=== PATIENT | male | born 1940 | race Caucasian/White ===

== ENCOUNTER → 2016-06-05 13:33 | Outpatient (CLI) | payer MEDICARE, BC ==
[2013-05-19 10:08] VITALS: BMI 27.3
[~2016-06-05 13:33] MED LIST: AMITIZA24 MCG PO; CO Q-10100 MG PO; CRESTOR10 MG PO; FISH OIL 1,0001 CA1 PO; GARLIC1 CAP PO; K-DUR20 MEQ PO; MIRALAX17 GM PO; MULTI-DAY VITAM1 TAB PO; PROTONIX40 MG PO; REGLAN10 MG PO; VITAMIN E1000 UNIT PO
== END | disposition home or self-care (01) ==
LOC: D.MRI 13:33
DX: M54.16 Radiculopathy, lumbar region (principal); M54.12 Radiculopathy, cervical region

== ENCOUNTER 2016-12-08 15:37 | Emergency (ER) | payer MEDICARE, BC ==
[2013-05-19 10:08] VITALS: BMI 27.3
[2016-12-08 16:07] LABS: BASOPHILS 0.7 % (0-2); EOSINOPHILS 2.5 % (0-7); HEMATOCRIT 40.4 % (42.0-54.0); HEMOGLOBIN 14.6 g/dL (13.5-17.5); LYMPHOCYTES 24.5 % (15-50); MCHC 36.1 g/dL (31.0-37.0); MCV 96.9 fL (80.0-100.0); MEAN PLATELET VOLUME 9.6 fL (7.4-10.4); MONOCYTES 8.7 % (2-11); NEUTROPHILS 63.6 % (40-80); RBC 4.17 10x6/uL (4.20-6.10); RDW 12.3 % (11.5-14.5); WBC 5.5 10x3/uL (4.8-10.8)
[2016-12-08 16:08] LABS: PLATELET COUNT 170 10x3/uL (130-400)
[2016-12-08 16:09] LABS: APPEARANCE CLEAR (CLEAR); BILIRUBIN NEGATIVE (NEGATIVE); COLOR YELLOW (YELLOW); GLUCOSE NEGATIVE (NEGATIVE); KETONE NEGATIVE (NEGATIVE); NITRITE NEGATIVE (NEGATIVE); PROTEIN NEGATIVE (NEGATIVE); SPECIFIC GRAVITY 1.015 (1.005-1.020); UROBILINOGEN NORMAL (NORMAL)
[2016-12-08 16:11] LABS: RED CELLS - URINE 25-50 /hpf (0-5)
[2016-12-08 16:12] LABS: BACTERIA FEW /hpf (NONE SEEN)
[2016-12-08 16:23] LABS: CREATININE - SERUM 1.1 mg/dL (0.6-1.3)
[2016-12-08 16:24] LABS: ANION GAP 11.4 mmol/L (8-16); BILIRUBIN - TOTAL 0.58 mg/dL (0.2-1.3); CARBON DIOXIDE 27.3 mmol/L (21.0-32.0); POTASSIUM - SERUM 3.7 mmol/L (3.5-5.1); PROTEIN - SERUM 7.6 g/dL (6.4-8.2)
== END 2016-12-08 18:00 | disposition home or self-care (01) ==
LOC: D.ER 15:37
PROVIDERS: Emergency Medicine
DX: N20.1 Calculus of ureter (principal); N40.0 Benign prostatic hyperplasia without lower urinary tract symptoms; K21.9 Gastro-esophageal reflux disease without esophagitis

== ENCOUNTER 2017-09-27 21:09 | Inpatient (IN) | payer MEDICARE, BC ==
[~2017-09-27] VITALS: Ht 177.8 cm; Wt 84.2 kg
--- NOTE | ~2017-09-27 | HP ---
PATIENT: ROHAN DOOLEY MEDICAL RECORD: [id number] ACCOUNT: [id number] LOCATION:[facility] [id number] : 38 ADMISSION DATE: 09/28/17 HISTORY AND PHYSICAL EXAMINATION DATE OF ADMISSION: 09/28/2017 CHIEF COMPLAINT: Abdominal pain. HISTORY OF PRESENT ILLNESS: This is a 77-year-old male followed by Dr. Ireland, who had acute onset of sharp and dull abdominal pain started 2 hours prior to arrival in the ER. Pain was diffuse and went up into the epigastric area. He had some nausea, but no vomiting or diarrhea. He states he cannot vomit since he had a Jazmine surgery 30 years ago. In the ER, the CT of the abdomen and pelvis showed some loops of borderline dilated fluid in the mid abdomen and it was felt he might have an early enteritis. He is admitted. PAST MEDICAL AND SURGICAL HISTORY: He has had some elevated glucose, but does not have a firm diagnosis of diabetes. He is blind in his right eye. He is hard of hearing. He has osteoarthritis, history of BPH, followed by a urologist, history of reflux. PAST SURGICAL HISTORY: Jazmine fundoplication. He has had a hernia repair. He has had knee arthroscopy. ALLERGIES: ASPIRIN, PENICILLIN, CARAFATE AND REGLAN. HOME MEDICATIONS: Zantac 150 mg twice a day, Flomax 0.4 mg once a day, MiraLax 1 scoop in 8 ounces of water once a day. SOCIAL HISTORY: He is and retired. HABITS: Never smoked. No alcohol or drugs. FAMILY HISTORY: Father at 59, he had colon cancer, he also had diabetes. Mother at 77, she had hypertension. REVIEW OF SYSTEMS: GENERAL: No major weight changes. HEENT: No particular sinus or allergy problems. RESPIRATORY: No history of emphysema or asthma. CARDIAC: No history of coronary artery disease. GASTROINTESTINAL: See above history. GENITOURINARY: He has BPH. MUSCULOSKELETAL: He has few arthritic aches and pains. NEUROLOGIC: No migraines. No seizure disorder. PSYCHIATRIC: Denies depression or melancholia. PHYSICAL EXAMINATION: VITAL SIGNS: Temperature 98.2, pulse 56, respirations 18, blood pressure 143/59, O2 saturation 93% on room air. GENERAL: He does not appear in acute distress at this time, sitting on side of the bed. SKIN: Warm and dry. HEENT: Grossly within normal limits. HISTORY AND PHYSICAL [id number] DOOLEYROHAN Aguilar NECK: Supple. No JVD or bruit. HEART: Regular rate and rhythm without murmur. LUNGS: Clear. ABDOMEN: Mild generalized tenderness. No guarding, no rebound, no mass. RECTAL: Not done. EXTREMITIES: No edema. LABORATORY DATA: Urinalysis is normal. CBC with a white count of 4700, hemoglobin 18.4, hematocrit 49.8, platelets 115,000. Basic metabolic panel is all normal. Liver functions are normal. Amylase 39, lipase 161. EKG, nonspecific changes. CT of the abdomen and pelvis shows loops of borderline dilated fluid-filled small bowel in the mid abdomen. There are bilateral nonobstructive kidney stones. Bladder wall is thickened. Small right middle lobe pulmonary nodule, unchanged from 2015. ASSESSMENT: Enteritis, infectious versus inflammatory. PLAN: IV fluids, give him some antibiotics, continue his usual home meds. Other tests and procedures as warranted. TRANSINT:[id number] Voice Confirmation ID: [id number] DOCUMENT ID: [id number] KWASI CRAIG MD at 1749 CC: [id number] DICTATION DATE: 09/28/17 1421 TILE AND MARBLE SETTER: 09/28/17 1509 ADM IN [facility] [address] [place] [address]
[2017-09-27] MEDS ORDERED: ZANTAC 7575 MG (21:21)
[2017-09-27] MEDS ORDERED: FLOMAX0.4 MG (21:21)
[2017-09-27] MEDS ORDERED: MIRALAX17 GM (21:21)
[2017-09-27 21:45] LABS: APPEARANCE CLEAR (CLEAR); BILIRUBIN NEGATIVE (NEGATIVE); COLOR YELLOW (YELLOW); GLUCOSE NEGATIVE (NEGATIVE); KETONE NEGATIVE (NEGATIVE); NITRITE NEGATIVE (NEGATIVE); PROTEIN NEGATIVE (NEGATIVE); UROBILINOGEN NORMAL (NORMAL)
[2017-09-27 21:48] LABS: BASOPHILS 0.4 % (0-2); EOSINOPHILS 3.8 % (0-7); HEMATOCRIT 49.8 % (42.0-54.0); HEMOGLOBIN 18.4 g/dL (13.5-17.5); IMMATURE GRANULOCYTES 0.2 % (0-5); LYMPHOCYTES 30.9 % (15-50); MCH 35.5 pg (26.0-34.0); MCHC 36.9 g/dL (31.0-37.0); MCV 96.1 fL (80.0-100.0); MEAN PLATELET VOLUME 10.5 fL (7.4-10.4); MONOCYTES 7.8 % (2-11); NEUTROPHILS 56.9 % (40-80); PLATELET COUNT 115 10x3/uL (130-400); RBC 5.18 10x6/uL (4.20-6.10); RDW 12.6 % (11.5-14.5); WBC 4.7 10x3/uL (4.8-10.8)
[2017-09-27 21:51] LABS: ALBUMIN 4.1 g/dL (3.4-5.0); ALKALINE PHOSPHATASE 95 U/L (46-116); ALT (SGPT) 32 U/L (10-68); AMYLASE - SERUM 39 U/L (25-115); BILIRUBIN - TOTAL 0.46 mg/dL (0.2-1.3); CALC OSMOLALITY 284 mosm/kg (275-300); CALCIUM 9.3 mg/dL (8.5-10.1); CARBON DIOXIDE 28.7 mmol/L (21.0-32.0); CHLORIDE - SERUM 106 mmol/L (98-107); GLUCOSE 131 mg/dL (74-106); LIPASE 161 U/L (73-393); POTASSIUM - SERUM 3.8 mmol/L (3.5-5.1); PROTEIN - SERUM 7.7 g/dL (6.4-8.2); SODIUM 142 mmol/L (136-145); UREA NITROGEN 13 mg/dL (7-18); eGFR NON AFRICAN AMERICAN 76 mL/min (90-120)
[2017-09-27 22:00] VITALS: BP 151/83
[2017-09-27 23:09] VITALS: BP 153/79
[2017-09-28 00:10] VITALS: BP 148/82
[2017-09-28 02:52] VITALS: BP 178/82; BMI 26.7
[2017-09-28 08:05] VITALS: BP 145/57
[2017-09-28 08:43] VITALS: Ht 177.8 cm; Wt 84.2 kg
[2017-09-28 11:41] VITALS: BP 143/59
[2017-09-28] MEDS ORDERED: ZANTAC150 MG PO (14:23)
[2017-09-28 16:14] VITALS: BP 160/73
[2017-09-28 21:26] VITALS: BP 133/57
[2017-09-29 00:45] VITALS: BP 150/61
[2017-09-29 05:36] LABS: ALBUMIN 3.4 g/dL (3.4-5.0); ALKALINE PHOSPHATASE 88 U/L (46-116); ALT (SGPT) 26 U/L (10-68); BILIRUBIN - TOTAL 1.16 mg/dL (0.2-1.3); CALC OSMOLALITY 283 mosm/kg (275-300); CALCIUM 8.7 mg/dL (8.5-10.1); CARBON DIOXIDE 29.4 mmol/L (21.0-32.0); CHLORIDE - SERUM 108 mmol/L (98-107); GLUCOSE 113 mg/dL (74-106); POTASSIUM - SERUM 3.9 mmol/L (3.5-5.1); PROTEIN - SERUM 6.5 g/dL (6.4-8.2); SODIUM 143 mmol/L (136-145); eGFR NON AFRICAN AMERICAN 76 mL/min (90-120)
[2017-09-29 05:52] LABS: UREA NITROGEN 8 mg/dL (7-18)
[2017-09-29 06:01] LABS: BASOPHILS 0.6 % (0-2); EOSINOPHILS 6.1 % (0-7); HEMOGLOBIN 13.9 g/dL (13.5-17.5); LYMPHOCYTES 27.4 % (15-50); MCH 34.8 pg (26.0-34.0); MCHC 36.1 g/dL (31.0-37.0); MCV 96.3 fL (80.0-100.0); MEAN PLATELET VOLUME 10.5 fL (7.4-10.4); MONOCYTES 13.2 % (2-11); NEUTROPHILS 52.7 % (40-80); PLATELET COUNT 133 10x3/uL (130-400); RDW 12.4 % (11.5-14.5); WBC 4.9 10x3/uL (4.8-10.8)
[2017-09-29 06:02] LABS: HEMATOCRIT 38.5 % (42.0-54.0)
[2017-09-29 06:29] VITALS: BP 150/54
[2017-09-29 08:53] VITALS: BP 141/77
[2017-09-29 12:02] VITALS: BP 144/62
[2017-09-29] MEDS ORDERED: FLAGYL500 MG PO (13:36)
== END 2017-09-29 14:40 | disposition home or self-care (01) | DRG 392 ==
LOC: D.ER 21:09 → D.EDHOLD 09-28 01:15 → D.M2 09-28 01:42
PROVIDERS: Family Medicine
DX: K52.9 Noninfective gastroenteritis and colitis, unspecified (principal); M19.90 Unspecified osteoarthritis, unspecified site; N40.0 Benign prostatic hyperplasia without lower urinary tract symptoms

== ENCOUNTER 2018-01-14 21:07 | Emergency (ER) | payer MEDICARE, BC ==
[~2018-01-14] VITALS: Ht 177.8 cm; Wt 87.3 kg
[~2018-01-14 21:07] MED LIST changes: +FLAGYL500 MG PO; +FLOMAX0.4 MG PO; +ZANTAC 7575 MG; +ZANTAC150 MG PO
[2018-01-14 21:12] VITALS: Ht 177.8 cm; Wt 87.3 kg
[2018-01-14 21:56] LABS: BASOPHILS 0.1 % (0-2); EOSINOPHILS 1.7 % (0-7); HEMATOCRIT 41.1 % (42.0-54.0); HEMOGLOBIN 14.9 g/dL (13.5-17.5); IMMATURE GRANULOCYTES 0.1 % (0-5); LYMPHOCYTES 12.1 % (15-50); MCH 34.9 pg (26.0-34.0); MCHC 36.3 g/dL (31.0-37.0); MCV 96.3 fL (80.0-100.0); MEAN PLATELET VOLUME 10.2 fL (7.4-10.4); MONOCYTES 8.7 % (2-11); NEUTROPHILS 77.3 % (40-80); PLATELET COUNT 131 10x3/uL (130-400); RBC 4.27 10x6/uL (4.20-6.10); RDW 12.5 % (11.5-14.5); WBC 7.6 10x3/uL (4.8-10.8)
[2018-01-14 22:07] LABS: ALBUMIN 3.9 g/dL (3.4-5.0); ANION GAP 15.6 mmol/L (8-16); BILIRUBIN - TOTAL 1.05 mg/dL (0.2-1.3); CALCIUM 8.7 mg/dL (8.5-10.1); CARBON DIOXIDE 24.9 mmol/L (21.0-32.0); CREATININE - SERUM 1.4 mg/dL (0.6-1.3); POTASSIUM - SERUM 3.5 mmol/L (3.5-5.1); PROTEIN - SERUM 7.4 g/dL (6.4-8.2)
[2018-01-14 22:35] LABS: APPEARANCE CLEAR (CLEAR); BILIRUBIN NEGATIVE (NEGATIVE); COLOR YELLOW (YELLOW); GLUCOSE NEGATIVE (NEGATIVE); KETONE NEGATIVE (NEGATIVE); NITRITE NEGATIVE (NEGATIVE); PROTEIN NEGATIVE (NEGATIVE); UROBILINOGEN NORMAL (NORMAL)
[2018-01-15] MEDS ORDERED: NORCO 7.5/325 T1 TA1 PO (00:14)
[2018-01-15] MEDS ORDERED: ZOFRAN8 MG PO (00:14)
[2018-01-15 00:41] VITALS: BP 183/86
[2018-01-20] MEDS ORDERED: GLYCERIN A1 SUPP.REC RC (13:52)
[2018-01-20] MEDS ORDERED: HYDROCODON-ACE1 EAC7 PO (13:54)
== END 2018-01-15 00:33 | disposition home or self-care (01) ==
LOC: D.ER 21:07
PROVIDERS: Family Medicine
DX: R10.32 Left lower quadrant pain (principal); N20.0 Calculus of kidney

== ENCOUNTER 2018-01-18 08:18 | Emergency (ER) | payer MEDICARE, BC ==
[~2018-01-18] VITALS: Ht 177.8 cm; Wt 86.4 kg
[~2018-01-18 08:18] MED LIST changes: +NORCO 7.5/325 T1 TA1 PO; +ZOFRAN8 MG PO
[2018-01-18 08:25] VITALS: Ht 177.8 cm; Wt 86.4 kg
[2018-01-18 09:17] LABS: BASOPHILS 0.2 % (0-2); HEMATOCRIT 39.8 % (42.0-54.0); HEMOGLOBIN 14.5 g/dL (13.5-17.5); IMMATURE GRANULOCYTES 0.2 % (0-5); LYMPHOCYTES 9.7 % (15-50); MCH 35.3 pg (26.0-34.0); MCHC 36.4 g/dL (31.0-37.0); MCV 96.8 fL (80.0-100.0); MEAN PLATELET VOLUME 10.4 fL (7.4-10.4); MONOCYTES 11.7 % (2-11); NEUTROPHILS 77.2 % (40-80); PLATELET COUNT 151 10x3/uL (130-400); RBC 4.11 10x6/uL (4.20-6.10); RDW 12.3 % (11.5-14.5); WBC 9.1 10x3/uL (4.8-10.8)
[2018-01-18 09:31] LABS: ALBUMIN 3.7 g/dL (3.4-5.0); ALKALINE PHOSPHATASE 79 U/L (46-116); ALT (SGPT) 27 U/L (10-68); BILIRUBIN - TOTAL 1.04 mg/dL (0.2-1.3); CALC OSMOLALITY 276 mosm/kg (275-300); CALCIUM 9.1 mg/dL (8.5-10.1); CHLORIDE - SERUM 98 mmol/L (98-107); CREATININE - SERUM 2.1 mg/dL (0.6-1.3); GLUCOSE 140 mg/dL (74-106); POTASSIUM - SERUM 3.6 mmol/L (3.5-5.1); PROTEIN - SERUM 7.3 g/dL (6.4-8.2); SODIUM 136 mmol/L (136-145); UREA NITROGEN 21 mg/dL (7-18); eGFR NON AFRICAN AMERICAN 32 mL/min (90-120)
[2018-01-18 09:36] LABS: AMYLASE - SERUM 19 U/L (25-115); LIPASE 82 U/L (73-393)
[2018-01-18 09:38] LABS: TROPONIN-I < 0.017 ng/mL (0.000-0.060)
[2018-01-18 10:09] LABS: APPEARANCE CLEAR (CLEAR); BILIRUBIN NEGATIVE (NEGATIVE); COLOR YELLOW (YELLOW); GLUCOSE NEGATIVE (NEGATIVE); KETONE NEGATIVE (NEGATIVE); NITRITE NEGATIVE (NEGATIVE); PROTEIN TRACE mg/dL (NEGATIVE); SPECIFIC GRAVITY 1.015 (1.005-1.020); UROBILINOGEN NORMAL (NORMAL)
[2018-01-18 10:10] LABS: BACTERIA FEW /hpf (NONE SEEN); EPITHELIAL CELLS 0-5 /hpf (0-5); RED CELLS - URINE 0-5 /hpf (0-5); WHITE CELLS - URINE 0-5 /hpf (0-5)
[2018-01-18] MEDS ORDERED: NORCO 10-325 TA1 TAB PO (12:21)
[2018-01-18] MEDS ORDERED: SENNA8.6 MG PO (12:23)
[2018-01-18 13:36] VITALS: BP 160/67
[2018-01-20] MEDS ORDERED: GLYCERIN A1 SUPP.REC RC (13:52)
[2018-01-20] MEDS ORDERED: HYDROCODON-ACE1 EAC7 PO (13:54)
== END 2018-01-18 13:37 | disposition home or self-care (01) ==
LOC: D.ER 08:18
PROVIDERS: Family Medicine
DX: K59.03 Drug induced constipation (principal); T40.2X5A Adverse effect of other opioids, initial encounter; Y92.019 Unspecified place in single-family (private) house as the place of occurrence of the external cause; N20.0 Calculus of kidney; K21.9 Gastro-esophageal reflux disease without esophagitis

== ENCOUNTER 2018-01-21 08:55 | Outpatient (CLI) | payer MEDICARE, BC ==
[~2018-01-21] VITALS: Ht 177.8 cm; Wt 87.1 kg
[~2018-01-21 08:55] MED LIST changes: +GLYCERIN A1 SUPP.REC RC; +HYDROCODON-ACE1 EAC7 PO; +NORCO 10-325 TA1 TAB PO; +SENNA8.6 MG PO
[2018-01-21 09:54] LABS: ANION GAP 17.6 mmol/L (8-16); CALCIUM 8.9 mg/dL (8.5-10.1); CARBON DIOXIDE 24.3 mmol/L (21.0-32.0); CREATININE - SERUM 1.2 mg/dL (0.6-1.3); POTASSIUM - SERUM 3.9 mmol/L (3.5-5.1)
[2018-01-21 10:11] LABS: BASOPHILS 0.5 % (0-2); HEMATOCRIT 38.9 % (42.0-54.0); HEMOGLOBIN 13.9 g/dL (13.5-17.5); IMMATURE GRANULOCYTES 0.2 % (0-5); LYMPHOCYTES 17.3 % (15-50); MCH 34.9 pg (26.0-34.0); MCHC 35.7 g/dL (31.0-37.0); MCV 97.7 fL (80.0-100.0); MEAN PLATELET VOLUME 10.3 fL (7.4-10.4); MONOCYTES 7.9 % (2-11); NEUTROPHILS 70.1 % (40-80); RBC 3.98 10x6/uL (4.20-6.10); RDW 12.2 % (11.5-14.5); WBC 6.3 10x3/uL (4.8-10.8)
[2018-01-21 10:19] VITALS: Ht 177.8 cm; Wt 87.1 kg
[2018-01-21 10:22] LABS: PLATELET COUNT 186 10x3/uL (130-400)
== END 2018-01-21 14:40 | disposition home or self-care (01) ==
LOC: D.OPS 08:55 → D.PAN 11:10 → EDSTATUS 11:45 → D.OPS 11:45
PROVIDERS: Anesthesiology
DX: N20.1 Calculus of ureter (principal); Z53.8 Procedure and treatment not carried out for other reasons; Z01.812 Encounter for preprocedural laboratory examination